=== PATIENT | male | born 2000 | race Caucasian/White ===

== ENCOUNTER 2018-08-25 16:52 | Emergency (ER) | payer OTHER ==
[2018-08-25 16:58] VITALS: BP 145/78
--- NOTE | 2018-08-25 17:12 | ER Document Report ---
ED Medical Screen (RME) - General Chief Complaint: Abscess Stated Complaint: ABSCESS/TAILBONE Time Seen by Provider: 08/25/18 17:11 Mode of Arrival: Ambulatory Information source: Patient TRAVEL OUTSIDE OF THE [place] IN LAST 30 DAYS: No - HPI Patient complains to provider of: abscess Onset: Other - pt. with h/o ?pilonidal cyst se veral yrs. ago with recurrence in the past 7-10 days. - Related Data Allergies/Adverse Reactions: No Known Allergies Allergy (Unverified 08/25/18 16:55) Past Medical History - Social History Chew tobacco use (# tins/day): No Frequency of alcohol use: None Drug Abuse: None Renal/ Medical History: Denies: Hx Peritoneal Dialysis Physical Exam - Vital signs Vitals: Temp Pulse Resp BP Pulse Ox 98.8 F 78 14 145/78 H 97 08/25/18 16:57 08/25/18 16:57 08/25/18 16:57 08/25/18 16:57 08/25/18 16:57 Course - Vital Signs Vital signs: Temp Pulse Resp BP Pulse Ox 98.8 F 78 14 145/78 H 97 08/25/18 16:57 08/25/18 16:57 08/25/18 16:57 08/25/18 16:57 08/25/18 16:57
[2018-08-25] MEDS ORDERED: LIDOCAINE 2% INJ (20 MG/ML) 20 ML MDV INJ ONE (18:22)
--- NOTE | 2018-08-25 18:53 | ER Document Report ---
ED General - General Chief Complaint: Abscess Stated Complaint: ABSCESS/TAILBONE Time Seen by Provider: 08/25/18 17:11 Mode of Arrival: Ambulatory Notes: 17-year-old male with no past medical history presents to the emergency department with concern for abscess on his tailbone. Per patient 2 years ago he had a similar abscess which got I indeed. Patient states it is tender to palpation and his whole right buttock is tender. Patient denies fever, chills, nausea, vomiting, any other infectious symptoms. TRAVEL OUTSIDE OF THE [place] IN LAST 30 DAYS: No - Related Data Allergies/Adverse Reactions: No Known Allergies Allergy (Unverified 08/25/18 16:55) Past Medical History - General Information source: Patient - Social History Smoking Status: Current Every Day Smoker Chew tobacco use (# tins/day): No Frequency of alcohol use: None Drug Abuse: None Family History: Reviewed & Not Pertinent Patient has suicidal ideation: No Patient has homicidal ideation: No Renal/ Medical History: Denies: Hx Peritoneal Dialysis Review of Systems - Review of Systems Constitutional: See HPI EENT: No symptoms reported Cardiovascular: No symptoms reported Respiratory: No symptoms reported Gastrointestinal: See HPI Genitourinary: No symptoms reported Male Genitourinary: No symptoms reported Musculoskeletal: No symptoms reported Skin: See HPI Hematologic/Lymphatic: No symptoms reported Neurological/Psychological: No symptoms reported Physical Exam - Vital signs Vitals: Temp Pulse Resp BP Pulse Ox 98.8 F 78 14 145/78 H 97 08/25/18 16:57 08/25/18 16:57 08/25/18 16:57 08/25/18 16:57 08/25/18 16:57 - Notes Notes: PHYSICAL EXAMINATION: Reviewed vital signs and charting by RN GENERAL: Well-appearing, well-nourished and in no acute distress. HEAD: Atraumatic, normocephalic. EYES: Pupils equal round extraocular movements intact, sclera anicteric, conjunctiva are normal. ENT: nares patent. Moist mucous membranes. NECK: Normal range of motion LUNGS: Breath sounds clear to auscultation bilaterally and equal. No wheezes rales or rhonchi. HEART: Regular rate and rhythm without murmur EXTREMITIES: Normal range of motion, no pitting or edema. No cyanosis. NEUROLOGICAL: Face symmetric. PSYCH: Normal mood, normal affect. SKIN: Warm, Dry, area of erythema proximal left buttock near the gluteal fold with area of induration approximately the size of a golf ball. No area of fluctuance noted. Actively draining seropurulent material. Course - Re-evaluation Re-evalutation: 08/25/18 19:27 Well-appearing 17-year-old male presents for concern for pilonidal cyst. Evaluation large abscess on the right buttock at the gluteal cleft indurated larger than the size of a golf ball. Incision and drainage was performed. 11 blade scalpel was used. Large incision was made approximately 2-3 cm. Not a lot of purulent material was expressed, but it appears it was mixed with the blood and there was some amount. Patient tolerated the procedure well. Plan to give doxycycline 100 mg first dose now with a prescription for doxycycline 100 mg twice daily for 7 days. 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 Patient given strict return precautions. Patient stable for discharge. - Vital Signs Vital signs: Temp Pulse Resp BP Pulse Ox 98.8 F 78 14 145/78 H 97 08/25/18 16:57 08/25/18 16:57 08/25/18 16:57 08/25/18 16:57 08/25/18 16:57 Procedures - Incision and Drainage Right Buttock Type: Simple Anesthetic type: 2% Lidocaine mL's of anesthetic: 10 Blade size: 11 I&D procedure: Shurclens applied Incision Method: Incision made by scalpel Discharge - Discharge Clinical Impression: Pilonidal abscess Condition: Good Disposition: HOME, SELF-CARE Instructions: Abscess ([facility]), MRSA Cellulitis ([facility]), Oral Narcotic Medication ([facility]), Post Incision and Drainage Additional Instructions: He was seen in the emergency department this evening for a large abscess consistent with a pilonidal cyst. This is a very painful injury and you tolerated the procedure very well. A large incision was made and you should use gauze in the manner that the tech instructed you. If you develop fever, chills, systemic symptoms, numbness in your sit bones, urinary retention, or any other concerning symptoms please return to the emergency department for recheck. Also, please follow-up and keep your appointment for this upcoming Sunday and they can do a wound check there as well. If you do have any concerns in the meantime please do not hesitate to come back here for 24-hour recheck. I have given you a medication called doxycycline that covers for MRSA and staph. He gave her first dose here and you should fill it and take it twice a day for 7 days. Take it until it is gone even if symptoms have resolved. I have also given you a small course of narcotic medication for pain that you should take at night to help you sleep.
[2018-08-25] MEDS ORDERED: DOXYCYCLINE HYCLATE 100 MG TABLET PO ONE (19:23)
[2018-08-25] MEDS ORDERED: KETOROLAC TROMETHAMINE 60 MG/2 ML SDV IM ONE (19:24)
[2018-08-25] MEDS ORDERED: HYDROCODONE/ACETAMINOPHEN 5-325 MG (6 TAB/ER DISP) PO PRN (19:25)
== END 2018-08-25 19:41 | disposition home or self-care (01) ==
LOC: ER 16:52
DX: L05.01 Pilonidal cyst with abscess (principal); F17.200 Nicotine dependence, unspecified, uncomplicated; Z86.14 Personal history of Methicillin resistant Staphylococcus aureus infection
CPT/HCPCS: 99283; 96372; 10080; J3490; J1885